=== PATIENT | female | born 1960 | race Two or more races ===

== ENCOUNTER 2018-12-07 07:45 | Day surgery (SDC) | payer OTHER ==
[~2018-12-07 07:45] MED LIST: FOLGARD TABLET1 EACH PO; GABAPENTIN100 MG PO; LEVOTHYROXINE SO1 GM PO; OMEGA-31000 MG PO; [UNRECOGNIZED DRUG - OTHER]
== END 2018-12-07 15:25 | disposition home or self-care (01) ==
LOC: CIR.AMB 07:45
DX: D16.12 Benign neoplasm of short bones of left upper limb (principal)